=== PATIENT | male | born 1950 | race African-American/Black ===

== ENCOUNTER 2022-10-07 08:07 | Emergency (ER) | payer OTHER ==
[2022-10-07 08:13] VITALS: BP 0/0; PULSE 0; RESP 0; TEMP 0; BMI 26.5
== END 2022-10-07 08:16 | disposition expired ==
LOC: JER 08:07
PROC: 05H533Z Insertion of Infusion Device into Right Subclavian Vein, Percutaneous Approach (ICD-10-PCS; principal; 2022-10-07)
DX: I46.9 Cardiac arrest, cause unspecified (principal)
CPT/HCPCS: 99283-25